=== PATIENT | female | born 1960 | race Caucasian/White ===

== ENCOUNTER 2020-05-14 16:06 | Outpatient (CLI) | payer OTHER, SELFPAY ==
--- NOTE | ~2020-05-14 | MM_ITS ---
EXAMINATION: MM screening johan BI w too HISTORY: Screening mammogram TECHNIQUE: Craniocaudal and mediolateral oblique 3-D tomosynthesis images were obtained and synthetic 2-D images were generated. CAD analysis was submitted and interpreted. COMPARISON: 04/19/2019, 04/17/2015, 11/26/2012 bilateral digital screening mammogram examinations BREAST PARENCHYMAL COMPOSITION: There are scattered areas of fibroglandular density. FINDINGS: There is no evidence of suspicious mass, calcification, or architectural distortion to sugg est malignancy in either breast. There has been no suspicious interval change. IMPRESSION: 1. No mammographic evidence of malignancy. 2. Recommend routine screening mammography in one year. BI-RADS Category 1: Negative Reviewed, dictated and finalized at location A.
== END 2020-05-14 16:07 | disposition home or self-care (01) ==
LOC: ANHIMG 16:07
PROVIDERS: PCP Emergency Medicine; Visit Provider Emergency Medicine
DX: Z12.31 Encounter for screening mammogram for malignant neoplasm of breast (principal)
CPT/HCPCS: 77063; 77067

== ENCOUNTER 2022-03-25 09:54 | Outpatient (CLI) | payer OTHER, SELFPAY ==
--- NOTE | ~2022-03-25 | MM_ITS ---
EXAMINATION: MM screening johan BI w too HISTORY: Screening mammogram TECHNIQUE: Craniocaudal and mediolateral oblique 3-D tomosynthesis images were obtained and synthetic 2-D images were generated. CAD analysis was submitted and interpreted. COMPARISON: 05/14/2020, 04/19/2019, bilateral screening mammogram examinations BREAST PARENCHYMAL COMPOSITION: There are scattered areas of fibroglandular density. FINDINGS: New 2.9 mm circumscribed opacity is noted at mid to posterior depth in the lower inner righ t breast. Diagnostic right mammogram and right breast ultrasound examination are recommended. Otherwise there is no evidence of suspicious mass, calcification, or architectural distortion to sug gest malignancy in either breast. There has been no other suspicious interval change. IMPRESSION: 1. New 2.9 mm mass at mid to posterior depth in the lower inner right breast 2. Diagnostic right mammogram and right breast ultrasound examination are recommended. BI-RADS Category 0: Incomplete: Needs additional imaging evaluation. Reviewed, dictated and finalized at location A. IMPRESSION: 1. New 2.9 mm mass at mid to posterior depth in the lower inner right breast 2. Diagnostic right mammogram and right breast ultrasound examination are recom mended. BI-RADS Category 0: Incomplete: Needs additional imaging evaluation.
== END 2022-03-25 09:55 | disposition home or self-care (01) ==
PROVIDERS: PCP Emergency Medicine; Visit Provider Emergency Medicine
DX: Z12.31 Encounter for screening mammogram for malignant neoplasm of breast (principal); R92.8 Other abnormal and inconclusive findings on diagnostic imaging of breast
CPT/HCPCS: 77063; 77067

== ENCOUNTER 2022-04-21 11:50 | Outpatient (CLI) | payer OTHER, SELFPAY ==
--- NOTE | ~2022-04-21 | MMUS_ITS ---
EXAMINATION: MM diagnostic johan RT w too, US breast RT limited HISTORY: New 2.9 mm mass at mid to posterior depth in the lower inner right breast reported on 022 screening mammogram TECHNIQUE: Additional 3-D tomosynthesis images of were performed and synthetic 2-D images were genera [place]. CAD analysis was submitted and interpreted. High resolution breast ultrasound was performed. COMPARISON: None FINDINGS: MAMMOGRAPHIC FINDINGS: There is an approximately 2.8 mm circumscribed lobular opacity at mid depth in the lower inner quadra nt of the right breast ULTRASOUND: No soft tissue mass, cyst or suspicious shadowing is detected in the lower inner quadrant of the righ t breast. No sonographic correlate is noted for the 2.8 mm mammographic opacity in the lower inner qu adrant. IMPRESSION: 1. Probable benign finding 2. 6 month right diagnostic mammogram follow-up, with ultrasound if required is recommended BI-RADS category 3, probably benign findings. Reviewed, dictated and finalized at location A. IMPRESSION: 1. Probable benign finding 2. 6 month right diagnostic mammogram follow-up, with ultrasound if required is recommended BI-RADS category 3, probably benign findings.
== END 2022-04-21 11:51 | disposition home or self-care (01) ==
PROVIDERS: PCP Emergency Medicine; Visit Provider Emergency Medicine
DX: N63.10 Unspecified lump in the right breast, unspecified quadrant (principal); R92.8 Other abnormal and inconclusive findings on diagnostic imaging of breast
CPT/HCPCS: 76642; 77061; 77065; G0279

== ENCOUNTER 2022-04-27 02:53 | Day surgery (SDC) | payer OTHER, SELFPAY ==
[2022-04-18 09:09] VITALS: BMI 25.3
[2022-04-27 11:22] VITALS: BP 174/69; PULSE 70; RESP 20; TEMP 37; O2SAT 100; BMI 25.9
[2022-04-27] MEDS: LACTATED RINGERS 1,000 ML 150 ML IV CONT (11:23)
--- NOTE | 2022-04-27 11:50 | WPDANESEPPF ---
Anes - Initial Pre Proc Eval Procedure: Operation Date: 04/27/22 12:30 Proposed Procedures p Screening Colonoscopy - Brent Oscar MD Date/Time: 04/27/22 11:50 Surgeon: Brent Oscar MD Pre Op Diagnosis: neoplasm screening Patient Data Age: 61 Gender: F Height: 1.6 m Weight: 66.4 kg Last Vital Signs Temp 98.6 F 04/27/22 11:22 Pulse 70 04/27/22 11:22 Resp 20 04/27/22 11:22 BP 174/69 H 04/27/22 11:22 Pulse Ox 100 04/27/22 11:22 O2 Del Method Room Air 04/27/22 11:22 Allergies Allergy/AdvReac Type Severity Reaction Status Date / Time mold Allergy Unknown Other Verified 04/27/22 11:10 No Known Allergies Allergy Verified 04/27/22 11:10 Home Medications Medication Instructions Recorded Confirmed Type fluticasone propionate 50 See Rx Instructions .Route .COMPLEX 09/08/19 04/18/22 History mcg/actuation nasal spray,suspension (Flonase Allergy Relief) triamcinolone acetonide 0.1 % See Rx Instructions topical DAILY 03/27/20 04/18/22 Rx topical ointment #80 grams ezetimibe 10 mg tablet (Zetia) 10 mg PO DAILY #90 tabs 12/20/21 04/18/22 Rx losartan 100 See Rx Instructions .Route 12/20/21 04/18/22 Rx mg-hydrochlorothiazide 25 mg tablet .COMPLEX #90 tabs nebivolol 10 mg tablet (Bystolic) 10 mg PO DAILY #90 tabs 12/20/21 04/18/22 Rx nebivolol 5 mg tablet (Bystolic) 5 mg PO DAILY #90 tabs 04/05/22 04/18/22 Rx calcium carbonate 600 mg-vitamin 1 tablet PO DAILY 04/19/22 04/27/22 History D3 10 mcg (400 unit) chewable tablet (Calcium 600 with Vitamin D3) Patient hx anesthesia problems: none Family hx anesthesia problems: none Results Review: All pre-operative results and documents have been reviewed as part of the pre-operative evaluation. [facility] Past Medical History Medical History History of vaginal delivery HLD (hyperlipidemia) HTN (hypertension) Other screening mammogram Vitamin D deficiency disease Surgical History Surgical History Hx of tonsillectomy Family History Family History Father Acute myocardial infarction, Onset Age: 58 Family history of hypercholesterolemia Hypertension Mother Family history of hypercholesterolemia Hypertension Grandparent Hypertension Social History Social History Smoking status: Never smoker Second hand tobacco smoke exposure: No Alcohol intake: current Alcohol use details: rare use-on holidays Substance use: never Substance use type: does not use Living arrangements: with family Spiritual care concerns: No Anes - Eval Final PreProcedure Day of Procedure 04/27/22 11:50 Patient weight: normal Heart: regular rate and rhythm Lungs: clear to auscultation Airway: Mallampati scale class II Neurological: alert and oriented Last oral intake: >/= 8 hours ASA classification: II Emergent: no Anesthetic plan: proceed Anesthesia type and monitoring: general GIVS and standard monitoring Results Review: All pre-operative results and documents have been reviewed as part of the pre-operative evaluation. Informed Consent: The patient's anesthetic plan and its attendant risks and benefits were discussed with the patient/family/POA. Questions were solicited and answers provided to the satisfaction of the patient/family/POA.
--- NOTE | 2022-04-27 12:30 | PM.HPGS ---
History of Present Illness History of Present Illness Consent: Risks, benefits, and alternatives have been discussed and questions answered. Patient agrees to proceed with procedure. Chief complaint: neoplasm screening Narrative: Charity Schroeder is a 61 year old female here for first screening colonoscopy Review of Systems Constitutional: Constitutional: Denies headache(s) and Denies weakness Eyes: Eyes: Denies blurry vision ENT: Reports Normal hearing present, Denies headache(s) and Denies neck pain Cardiovascular: Cardiovascular: Denies chest pain and Denies dyspnea Respiratory: Respiratory: Denies dyspnea Gastrointestinal: Gastrointestinal: Reports no additional gastrointestinal complaints Genitourinary: Genitourinary: Denies dysuria Musculoskeletal: Musculoskeletal: Denies neck pain Integumentary/Breasts: Skin/Breast: Denies dry skin Neurologic: Reports Normal hearing present, Denies headache(s) and Denies weakness Psychiatric: Psychiatric: Denies anxiety Endocrine: Endocrine: Denies change in body appearance Hematologic/Lymphatic: Hematologic/Lymphatic: Denies easy bleeding Allergic/Immunologic: Allergic/Immunologic: Denies urticaria PMFSH Past Medical History Medical History History of vaginal delivery HLD (hyperlipidemia) HTN (hypertension) Other screening mammogram Vitamin D deficiency disease Surgical History Surgical History Hx of tonsillectomy Family History Family History Father Acute myocardial infarction, Onset Age: 58 Family history of hypercholesterolemia Hypertension Mother Family history of hypercholesterolemia Hypertension Grandparent Hypertension Social History Social History Smoking status: Never smoker Second hand tobacco smoke exposure: No Alcohol intake: current Alcohol use details: rare use-on holidays Substance use: never Substance use type: does not use Living arrangements: with family Spiritual care concerns: No Meds Home Medications and Allergies Home Medications Medication Instructions Recorded Confirmed Type fluticasone propionate 50 See Rx Instructions .Route .COMPLEX 09/08/19 04/18/22 History mcg/actuation nasal spray,suspension (Flonase Allergy Relief) triamcinolone acetonide 0.1 % See Rx Instructions topical DAILY 03/27/20 04/18/22 Rx topical ointment #80 grams ezetimibe 10 mg tablet (Zetia) 10 mg PO DAILY #90 tabs 12/20/21 04/18/22 Rx losartan 100 See Rx Instructions .Route 12/20/21 04/18/22 Rx mg-hydrochlorothiazide 25 mg tablet .COMPLEX #90 tabs nebivolol 10 mg tablet (Bystolic) 10 mg PO DAILY #90 tabs 12/20/21 04/18/22 Rx nebivolol 5 mg tablet (Bystolic) 5 mg PO DAILY #90 tabs 04/05/22 04/18/22 Rx calcium carbonate 600 mg-vitamin 1 tablet PO DAILY 04/19/22 04/27/22 History D3 10 mcg (400 unit) chewable tablet (Calcium 600 with Vitamin D3) Allergies Allergy/AdvReac Type Severity Reaction Status Date / Time mold Allergy Unknown Other Verified 04/27/22 11:10 No Known Allergies Allergy Verified 04/27/22 11:10 Vital Signs Vital Signs - 24 hr 04/27/22 11:22 Temperature 98.6 F Pulse Rate 70 Respiratory Rate 20 Blood Pressure 174/69 H Pulse Oximetry 100 Oxygen Delivery Room Air Exam Const: General: comfortable and no acute distress HENMT: General nose exam: Normal nares present Eyes: General: appearance normal, both eyes and all related structures Neck: Neck: no JVD Resp: Auscultation: clear to auscultation bilaterally Cardio: Rate: regular rate Rhythm: regular rhythm GI: Inspection: non-distended GI Palp: Yes Soft to palpation Skin: General skin exam: normal color Neuro: General: gait normal Speech: normal speech Extrem: General:
[2022-04-27 12:45] VITALS: BP 123/53; PULSE 69; RESP 13; O2SAT 100
[2022-04-27 12:55] VITALS: BP 133/75; PULSE 63; RESP 18; O2SAT 100
[2022-04-27 13:04] VITALS: BP 158/70; PULSE 53; RESP 18; O2SAT 100
== END 2022-04-27 13:10 | disposition home or self-care (01) ==
PROVIDERS: PCP Emergency Medicine; Visit Provider Internal Medicine Gastroenterology
PROC: 0DJD8ZZ Inspection of Lower Intestinal Tract, Via Natural or Artificial Opening Endoscopic (ICD-10-PCS; CPT 45378; principal; 2022-04-27 12:30)
DX: Z12.11 Encounter for screening for malignant neoplasm of colon (principal); K64.8 Other hemorrhoids; I10 Essential (primary) hypertension; E78.5 Hyperlipidemia, unspecified; E55.9 Vitamin D deficiency, unspecified
CPT/HCPCS: 45378; J2001; J2704; J7120

== ENCOUNTER 2022-11-14 11:47 | Outpatient (CLI) | payer OTHER, SELFPAY ==
--- NOTE | ~2022-11-14 | MM_ITS ---
EXAMINATION: MM diagnostic johan RT w too HISTORY: Six-month follow-up for probably benign right breast mass. TECHNIQUE: Craniocaudal, mediolateral, and mediolateral oblique 3-D tomosynthesis images of the right breast were performed and synthetic 2-D images were generated. CAD analysis was submitted and interp reted. COMPARISON: 04/21/2022, 03/25/2022, 05/14/2020 BREAST PARENCHYMAL COMPOSITION: There are scattered areas of fibroglandular density. FINDINGS: The subtle 3 mm mass of the lower inner right breast demonstrates a similar appearance to p rior mammograms with spot compression. There has been no suspicious interval change. IMPRESSION: 1. No mammographic evidence of malignancy. 2. Routine screening mammography is recommended, due in six months. BI-RADS Category 2: Benign finding(s). Reviewed, dictated and finalized at location A. VITIES AIDE
== END 2022-11-14 11:48 | disposition home or self-care (01) ==
LOC: ANHIMG 11:59
PROVIDERS: PCP Emergency Medicine; Visit Provider Emergency Medicine
DX: N63.10 Unspecified lump in the right breast, unspecified quadrant (principal)
CPT/HCPCS: 77061; 77065; G0279

== ENCOUNTER 2022-12-19 12:56 | Outpatient (CLI) | payer OTHER, SELFPAY ==
--- NOTE | ~2022-12-19 | DEXA_ITS ---
Bone Density Report Name: ROSA GARCIA Age: 62 Sex: Female Ethnicity: White Date of : 1960 Indication: postmenopausal; screening for osteoporosis; Referring Provider: ESHA KUNZ Study: Bone densitometry was performed. Exam Date: December 19, 2022 Accession number: [id number] Bone Density: Region BMD T-score Z-score Classification AP Spine(L1-L4) 1.023 -0.2 1.2 Normal Femoral Neck (Left) 0.658 -1.7 -0.4 Osteopenia Total Hip (Left) 0.883 -0.5 0.5 Normal Femoral Neck (Right) 0.681 -1.5 -0.2 Osteopenia Total Hip (Right) 0.827 -0.9 0.0 Normal Total Hip Mean 0.855 -0.7 0.3 Normal World Health Organization criteria for BMD impression classify patients as: Normal (T-score at or above -1.0), Osteopenia (T-score between -1.0 and -2.5), or Osteoporosis (T-score at or below -2.5). 10-year Fracture Risk(1): Major Osteoporotic Fracture 8.8% Hip Fracture 0.9% Reported Risk Factors: [place] (), Neck BMD=0.658, BMI=26.4 (1) FRAX(R) Version 3.08. Fracture probability calculated for an untreated patient. Fracture probability may be lower if the patient has received treatment. Clinical Information Provided by Patient: Has used the following medications: Vitamin D, Calcium Patient maximum height was 63 Menopause Age: 52 Onset of menses at age 15 Number of children 2 Impression: The patient has low bone mass, based on the Left Femoral Neck T-score. The patient has an estimated ten-year risk of hip fracture of 0.9% and an estimated ten-year risk of major fracture of 8.8%, based on the WHO FRAX algorithm. Discussion: BONE DENSITY IS LOW AT ONE OR MORE SKELETAL SITES. This patient's lowest T-score is low at one or more skeletal sites. It meets the World Health Organization's (WHO) criteria for ?low bone mass? (T-score between -1.0 and -2.5). The patient's 10-year risk of fracture as calculated by FRAX is less than the threshold where pharmacological therapy is recommended by the National Osteoporosis Foundation (NOF). However, all treatment decisions require clinical judgment and consideration of individual patient factors, including patient preferences, comorbidities, previous drug use, risk factors not captured in the FRAX model (e.g., frailty, falls, vitamin D deficiency, increased bone turnover, interval significant decline in bone density) and possible under or overestimation of fracture risk by FRAX. The patient should follow a healthful lifestyle (good nutrition with adequate calcium and vitamin D, and appropriate weight-bearing exercise). Follow-Up: Consider repeating this study in 2 to 3 years to reassess this patient's status, or sooner if there is some new clinical indication. Reported by: BEST on 12/19/2022 1:16:00 PM.
== END 2022-12-19 12:57 | disposition home or self-care (01) ==
PROVIDERS: PCP Emergency Medicine; Visit Provider Student in an Organized Health Care Education/Training Program
DX: Z78.0 Asymptomatic menopausal state (principal); M85.89 Other specified disorders of bone density and structure, multiple sites
CPT/HCPCS: 77080

== ENCOUNTER 2023-07-14 09:07 | Outpatient (CLI) | payer OTHER, SELFPAY ==
--- NOTE | ~2023-07-14 | MM_ITS ---
EXAMINATION: MM screening johan BI w too HISTORY: Screening mammogram TECHNIQUE: Craniocaudal and mediolateral oblique 3-D tomosynthesis images were obtained and synthetic 2-D images were generated. CAD analysis was submitted and interpreted. COMPARISON: 11/14/2022 diagnostic right mammogram 04/21/2022 diagnostic right mammogram and limited right breast ultrasound 05/14/2020, 04/18/2019 bilateral screening mammogram examinations BREAST PARENCHYMAL COMPOSITION: There are scattered areas of fibroglandular density. FINDINGS: There is no evidence of suspicious mass, calcification, or architectural distortion to sugg est malignancy in either breast. There has been no suspicious interval change. IMPRESSION: 1. No mammographic evidence of malignancy. 2. Recommend routine screening mammography in one year. BI-RADS Category 1: Negative Reviewed, dictated and finalized at location A.
== END 2023-07-14 09:08 | disposition home or self-care (01) ==
LOC: ANHIMG 09:09
PROVIDERS: PCP Emergency Medicine; Visit Provider Emergency Medicine
DX: Z12.31 Encounter for screening mammogram for malignant neoplasm of breast (principal)
CPT/HCPCS: 77063; 77067

== ENCOUNTER 2024-08-05 14:44 | Outpatient (CLI) | payer OTHER, SELFPAY ==
--- NOTE | ~2024-08-05 | MM_ITS ---
EXAMINATION: MM screening johan BI w too HISTORY: Screening TECHNIQUE: Craniocaudal and mediolateral oblique 3-D tomosynthesis images were obtained and synthetic 2-D images were generated. CAD analysis was submitted and interpreted. COMPARISON: Comparison to multiple prior studies sequentially, with oldest reviewed study dated 04/19. BREAST PARENCHYMAL COMPOSITION: Not Dense: The breasts are almost entirely fatty. FINDINGS: There is no evidence of suspicious mass, calcification, or architectural distortion to sugg est malignancy in either breast. There has been no suspicious interval change. IMPRESSION: 1. No mammographic evidence of malignancy. 2. Recommend routine screening mammography in one year. BI-RADS Category 1: Negative Reviewed, dictated and finalized at location B.
== END 2024-08-05 14:45 | disposition home or self-care (01) ==
LOC: ANHIMG 14:47
PROVIDERS: PCP Emergency Medicine; Visit Provider Emergency Medicine
DX: Z12.31 Encounter for screening mammogram for malignant neoplasm of breast (principal)
CPT/HCPCS: 77063; 77067

== ENCOUNTER 2025-01-18 08:00 | Emergency (ER) | payer OTHER, SELFPAY ==
--- NOTE | 2025-01-18 08:08 | ED.URI ---
HPI - URI/Sore Throat General Chief Complaint: Upper Respiratory Infection Stated Complaint: cough Time Seen by Provider: 01/18/25 08:08 Source: patient Mode of arrival: ambulatory Limitations: no limitations History of Present Illness HPI Narrative: Charity is a 64-year-old female patient presenting to the clinic today with complaints of a productive cough with yellow phlegm, congestion, sinus pressure, headache, and occasional dizziness with position change. She reports symptoms have been going on for 1 week. Blood pressure was initially 203/86 in the clinic today. She denies any chest pain or shortness of breath. Manual blood pressure was 178/98. States she did take her blood pressure medications this morning Related Data Home Medications ?Medication ?Instructions ?Recorded ?Confirmed ?Last Taken ?Type cholecalciferol (vitamin D3) 50 4,000 unit PO DAILY 01/08/24 Unknown History mcg (2,000 unit) capsule Allergies Allergy/AdvReac Type Severity Reaction Status Date / Time mold Allergy Mild Other Verified 01/18/25 08:10 Review of Systems Review of Systems: Pertinent positives per HPI. Patient denies any fever, chills, rash, visual changes, shortness of breath, chest pain, palpitations, nausea, vomiting, diarrhea, constipation, abdominal pain, or any urinary issues. [facility] Past Medical History Medical History Rotator cuff (capsule) sprain Sleep apnea, unspecified Respiratory tract congestion with cough Acute non-recurrent maxillary sinusitis History of vaginal delivery Other screening mammogram Vitamin D deficiency disease HLD (hyperlipidemia) HTN (hypertension) Surgical History Surgical History Hx of tonsillectomy Family History Family History Father Acute myocardial infarction, Onset Age: 58 Family history of hypercholesterolemia Hypertension Mother Family history of hypercholesterolemia Hypertension Grandparent Hypertension Social History Social History Smoking status: Never smoker Second hand tobacco smoke exposure: No Alcohol intake: current Alcohol use details: rare use-on holidays Substance use: never Substance use type: does not use Living arrangements: with family Spiritual care concerns: No Comments At the time of my signature, I reviewed and agree with the nursing past medical, surgical, social, and family history. There is no relevant family history pertinent to the patient complaint. Exam Narrative: General: Well-developed, well nourished, in no apparent distress Head: Normocephalic, atraumatic Eyes: Pupils equally round and reactive to light bilaterally, EOM intact, sclera and conjunctive clear, no discharge, lids normal Ears: TMs intact and clear, ear canals clear, no drainage, grossly hearing normal. Nose: Nares patent, yellow nasal discharge, moderate inflammation, maxillary sinus tenderness. Mouth: Oral pharynx without lesions or masses, good dentition, MMM. Postnasal drip Neck: Supple, trachea midline, no enlargement of anterior or posterior cervical nodes, no thyroid masses or goiter palpable. Cardio: Regular rate and rhythm, s1 and s2 normal, no murmur appreciated. Resp: Clear to auscultation bilaterally, no rhonchi, rales, wheezing or rubs Course Course Emergency Course: Portions of this record may have been created with voice recognition software. Level of Care: Express Care Visit Vital Signs Vital signs: Vital Signs Temperature 36.6 C 01/18/25 08:16 Pulse Rate 71 01/18/25 08:16 Respiratory Rate 18 01/18/25 08:16 Pulse Oximetry 97 01/18/25 08:16 Oxygen Delivery Room Air 01/18/25 08:16 Temperature 36.6 C 01/18/25 08:16 Pulse Rate 71 01/18/25 08:16 Respiratory Rate 18 01/18/25 08:16 Blood Pressure 178/98 H 01/18/25 08:22 Pulse Oximetry 97 01/18/25 08:16 Oxygen Delivery Room Air 01/18/25 08:16 Vital signs reviewed Transfer Transfered to: [facility] Transportation: Other (private car) Transfer rationale: Hypertension urgency/protein urea Accepting physician: Dr. Glez Transfer comments: private car MDM - URI/Sore Throat MDM Narrative Medical decision making narrative: At the time of visit patient is resting comfortably on the exam table. Patient appears to be nontoxic. Plan: Patient coming in for possible sinus infection. Blood pressure was initially 203/86. She reports some occasional dizziness and sinus headache but no chest pain, shortness of breath, or visual changes. Urinalysis was performed and showed 2+ protein in her urine with a trace of blood. Recommend transfer to the ER for hypertension urgency. Will go ahead and send prescriptions in for sinus infection which will include Tessalon Perles and Augmentin. Patient agrees to be transfer to the ER and would like to go to [facility]. Spoke with Dr. Glez at [facility] and report was given for continuity of care- he accepts patient for transfer. Explained to the patient that due to her high blood pressure and protein in her urine that she could have end-organ damage-damage to her kidneys, liver, heart, and eyes. Risk of high blood pressure include stroke or heart attack. Patient voiced understanding. Differential Diagnosis Differential diagnosis: Likely upper respiratory infection, otitis media, sinusitis, viral infection, bronchitis, influenza, pharyngitis and other (COVID, hypertension urgency, hypertension emergency) Lab Data Labs: Lab Results 01/18/25 Range/Units 08:32 POC Urine Color Yellow POC Urine Clarity Clear POC Urine pH 7.0 POC Ur Specif [place] 1.020 POC Urine Protein 2+ (Negative) POC Ur Glucose (UA) Negative (Negative) POC Urine Ketones Negative (Negative) POC Urine Blood Trace (Negative) POC Urine Nitrite Negative (Negative) POC Urine Bilirubin Negative (Negative) POC Urine Urobilinogen 0.2 POC U Leukocyte Esteras Negative (Negative) Discharge Plan Discharge Clinical Impression: Acute bacterial sinusitis, Hypertensive urgency Patient Disposition: Acute Care Hospital Condition: Stable Patient Language: Kazakh Prescriptions: New benzonatate 200 mg capsule 200 mg PO TID 7 Days Qty: 21 0RF amoxicillin-pot clavulanate 875-125 mg tablet 1 tablet PO Q12H 10 Days Qty: 20 0RF No Action ezetimibe [Zetia] 10 mg tablet 10 mg PO DAILY Qty: 90 3RF triamcinolone acetonide 0.1 % ointment See Rx Instructions TOPICAL DAILY Qty: 80 5RF Rx Instructions: apply by topical route 2 times everyday a thin layer to the affected area topical daily; cholecalciferol (vitamin D3) 50 mcg (2,000 unit) capsule 4,000 unit PO DAILY fluticasone propionate [Flonase Allergy Relief] 50 mcg/actuation spray,suspension See Rx Instructions .ROUTE .COMPLEX Qty: 48 0RF Rx Instructions: [place] 1 spray bt intranasal route everyday in each nostril ; losartan-hydrochlorothiazide 100-25 mg tablet See Rx Instructions .ROUTE .COMPLEX Qty: 90 3RF Dose Instruction: TAKE 1 TABLET DAILY Rx Instructions: TAKE 1 TABLET DAILY nebivolol [Bystolic] 10 mg tablet 10 mg PO DAILY Qty: 90 3RF nebivolol [Bystolic] 5 mg tablet 5 mg PO DAILY Qty: 90 3RF Follow-up/Referrals: Johan Molina MD [Primary Care Provider] - Time of Disposition: 08:43 Quality NIHSS Nursing Documentation ED NIHSS nursing documentation: reviewed/agree
--- OUTSIDE RECORDS SUMMARY | 2025-01-18 08:10 | XMS_ITS | Clinical Summary ---
Author Organization [facility] Address [address] [place] [address] Care Team Providers Care Candy Starch Mold Printer Name Role Phone Unavailable Primary Care Provider Unavailabl e Source Comments [facility],non-owned Affiliates and Associated Physician Practices is amultiple site organization consisting of ambulatory clinics and hospital sitesin [place], [place], [place] and [place]. This disclosure is being madepursuant to the Care Everywhere program and may not contain all information available regarding this patient. Last updated 18.[facility] Allergies No known active allergies Medications * Be aware that medications may not be up to date on this document. Alwaysverify current medications with the patient. Medication Sig Dispensed Refills Start Date End Date Status LOSARTAN POTASSIUM PO Active Nebivolol HCl (BYSTOLIC PO) Active benzonatate (TESSALON) 200 MG capsule Take 1 capsule by mouth 3 times daily as needed for Cough 30 capsule 12/23/2018 Active Family History Medical History Relation Name Comments CAD (Coronary Artery Disease) Father CAD (Coronary Artery Disease) Mother Relation Name Status Comments Father Mother Social History Tobacco Use Types Packs/Day Years Used Date Smoking Tobacco: Never Smokeless Tobacco: Never Sex and Gender Information Value Date Recorded Sex Assigned at Not on file Gender Identity Not on file Sexual Orientation Not on file Last Filed Vital Signs Vital Sign Reading Time Taken Comments Blood Pressure 158/100 12/23/2018 11:05 AM COMPUTER TERMINAL OPERATOR Pulse 70 12/23/2018 10:48 AM COMPUTER TERMINAL OPERATOR Temperature 37.2 C (98.9 F) 12/23/2018 10:48 AM COMPUTER TERMINAL OPERATOR Respiratory Rate 16 12/23/2018 10:48 AM COMPUTER TERMINAL OPERATOR Oxygen Saturation 98% 12/23/2018 10:48 AM COMPUTER TERMINAL OPERATOR Inhaled Oxygen Concentration - - Weight 61.2 kg (135 lb) 12/23/2018 10:48 AM COMPUTER TERMINAL OPERATOR Height 160 cm (5' 3 ) 12/23/2018 10:48 AM COMPUTER TERMINAL OPERATOR Body Mass Index 23.91 12/23/2018 10:48 AM COMPUTER TERMINAL OPERATOR Plan of Treatment Health Maintenance Due Date Last Done Comments COLOGUARD (AGES 45-75) - COL ON CA SCREENING 1962 COLON MONITORING 1962 COLONOSCOPY - COLON CA SCREENING 1962 CT COLONOGRAPHY - COLON CA SCREENING 1962 Colorectal Cancer Screening 1962 FIT - COLON CA SCREENING 1962 FLEX SIG - COLON CA SCREENING 1962 LIPID TESTING 1962 MAMMOGRAM 1962 PAP SMEAR 1962 HIV SCREENING 1977 HEPATITIS C SCREENING 06/23/1980 DTAP/TDAP/TD VACCINES (1 - Tdap) 1981 PNEUMOCOCCAL VACCINE 50+ (1 of 1 - PCV) 2012 ZOSTER VACCINE (1 of 2) 2012 COVID-19 VACCINE (1 - 2023-2 5 season) 2024 INFLUENZA VACCINE (#1) 2024 DEPRESSION SCREENING 10/30/2024 Respiratory Syncytial Virus (RSV) Vaccine Pt: or over 60 yrs (1 - 1-dose 75+ series) 2037 HEPATITIS B VACCINE Aged Out No longe r eligible based on patient's age to complete this topic HIB VACCINE Aged Out No longer eligi ble based on patient's age to complete this topic HPV VACCINE Aged Out No longer eligi ble based on patient's age to complete this topic MENINGOCOCCAL (Group B) VACC INE SHARED DECISION-MAKING Aged Out No longer eligibl e based on patient's age to complete this topic MENINGOCOCCAL GROUPS A/C/Y/W VACCINE Aged Out No longer eligible b ased on patient's age to complete this topic PNEUMOCOCCAL VACCINE Aged Out No long er eligible based on patient's age to complete this topic
--- OUTSIDE RECORDS SUMMARY | 2025-01-18 08:10 | XMS_ITS | Clinical Summary ---
Author Organization [facility] Address [address] [place] [address] Care Team Providers Care Meter Repair Shop Supervisor Name Role Phone Unavailable Primary Care Provider Unavailabl e Social History Tobacco Use Types Packs/Day Years Used Date Smoking Tobacco: Never Assessed Comments Unknown Sex and Gender Information Value Date Recorded Sex Assigned at Not on file Legal Sex Female 4:48 PM CDT Gender Identity Not on file Sexual Orientation Not on file Plan of Treatment Health Maintenance Due Date Last Done Comments Cervical Cancer Screening Pa p Smear (Age 30 to 64) Every 3 Years 1962 Colorectal Cancer Screening Colonoscopy (10 Years) 1962 Annual Physical 1965 Hepatitis C 1980 DTaP, Tdap and Td Vaccines ( 1 - Tdap) 1981 Cervical Cancer Screening Pa p with HPV Testing (Age 30 to 64) Every 5 Years 1992 Cervical Cancer Screening with HPV 1992 Mammogram Screening 2002 Zoster Vaccines (1 of 2) 2012 COVID-19 Vaccine (2023-2 5 season) 2024 Influenza Adult (#1) 2024 RSV Immunization or 60+ Years (1 - 1-dose 75+ series) 2037 Meningococcal B Vaccine Aged Out No l onger eligible based on patient's age to complete this topic Meningococcal Vaccine Aged Out No cierra jose eligible based on patient's age to complete this topic Pneumococcal Vaccine: Pediat rics (0 to 5 Years) and At-Risk Patients (6 to 64 Years) Aged Out No longer eligible b ased on patient's age to complete this topic RSV Immunizations Under 20 Months Aged Out No longer eligible based on patient's age to complete this topic
[2025-01-18 08:16] VITALS: PULSE 71; RESP 18; TEMP 36.6; O2SAT 97
[2025-01-18 08:20] VITALS: BP 218/86
[2025-01-18 08:21] VITALS: BP 223/102
[2025-01-18 08:22] VITALS: BP 178/98
[2025-01-18 08:37] LABS: EDUAAPPEAR Clear; EDUABILI Negative (Negative); EDUABLOOD Trace (Negative); EDUACOLOR1 Yellow; EDUAGLUCOSE Negative (Negative); EDUAKETONE Negative (Negative); EDUALEUKO Negative (Negative); EDUANITRATE Negative (Negative); EDUAPROTEIN 2+ (Negative); EDUAUROBILI 0.2
== END 2025-01-18 08:47 | disposition short-term general hospital (02) ==
PROVIDERS: Emergency Provider Nurse Practitioner Family; PCP Emergency Medicine
DX: J01.90 Acute sinusitis, unspecified (principal); B96.89 Other specified bacterial agents as the cause of diseases classified elsewhere; I16.0 Hypertensive urgency; E78.5 Hyperlipidemia, unspecified; I10 Essential (primary) hypertension
CPT/HCPCS: 81003; 99212; G0463

== ENCOUNTER 2025-01-19 16:22 | Emergency (ER) | payer OTHER, SELFPAY ==
--- NOTE | 2025-01-19 16:25 | ECG_ITS ---
Test Date: 2025-01-19 16:32:04 Measurements Intervals [place] Rate: 86 P: 60 [place]: 179 QRS: 5 QRSD: 86 T: 49 QT: 359 QTc: 431 Interpretive Statements SINUS RHYTHM No previous ECG available for comparison Electronically Signed On 01-20-2025 16:35:25 CDT by Juan Morelos M.D.
--- OUTSIDE RECORDS SUMMARY | 2025-01-19 16:25 | XMS_ITS | Clinical Summary ---
Author Organization [facility] Address [address] [place] [address] Care Team Providers Care Certified Surgical Tech/First Assistant Name Role Phone Unavailable Primary Care Provider [...]
--- OUTSIDE RECORDS SUMMARY | 2025-01-19 16:25 | XMS_ITS | Clinical Summary ---
Author Organization [facility] Address [address] [place] [address] Care Team Providers Care Forging Die Sinker Name Role Phone Unavailable Primary Care Provider Unavailabl e Source Comments [facility],non-owned Affiliates and Associated Physician Practices is amultiple site organization consisting of ambulatory clinics and hospital sitesin [place], [place], [place] and [place]. This disclosure is being madepursuant to the Care Everywhere program and may not contain all information available regarding this patient. Last updated 18.[facility] Allergies No known active allergies Medications * [...] Comments Blood Pressure 158/100 12/23/2018 11:05 AM VISCOSE DEPARTMENT WORKER Pulse 70 12/23/2018 10:48 AM VISCOSE DEPARTMENT WORKER Temperature 37.2 C (98.9 F) 12/23/2018 10:48 AM VISCOSE DEPARTMENT WORKER Respiratory Rate 16 12/23/2018 10:48 AM VISCOSE DEPARTMENT WORKER Oxygen Saturation 98% 12/23/2018 10:48 AM VISCOSE DEPARTMENT WORKER Inhaled Oxygen Concentration - - Weight 61.2 kg (135 lb) 12/23/2018 10:48 AM VISCOSE DEPARTMENT WORKER Height 160 cm (5' 3 ) 12/23/2018 10:48 AM VISCOSE DEPARTMENT WORKER Body Mass Index 23.91 12/23/2018 10:48 AM VISCOSE DEPARTMENT WORKER Plan of Treatment Health Maintenance Due Date [...]
[2025-01-19 16:33] VITALS: BP 230/110; PULSE 96; RESP 16; TEMP 36.7; O2SAT 96
[2025-01-19 16:35] VITALS: BP 227/112
--- NOTE | 2025-01-19 19:03 | ED.RECABL ---
HPI - Recheck/Abnormal Lab/Rx General Chief Complaint: Recheck/Abnormal Lab/Rx Stated Complaint: HTN Time Seen by Provider: 01/19/25 19:01 Source: patient and family Mode of arrival: ambulatory Limitations: no limitations History of Present Illness HPI narrative: Patient presents with report of hypertension. She was seen at urgent care yesterday for sinus infection symptoms and prescribed an antibiotic. Prior to their assessment and plan however she was noted to be hypertensive and encouraged to go to the emergency department. She declined as she was dealing with symptoms of her cold/upper respiratory infection and continue to monitor at home with a home BP cuff. It did remain elevated at home. Patient has a diagnosis of hypertension and is on Bystolic 10 q.a.m. as well as losartan-hydrochlorothiazide 100-25 QAM. She took her antihypertensives yesterday morning as well as this morning. No dose changes to these medications recently although it has been a year since she saw her primary care physician Dr. Molina. She has an appointment to see him tomorrow for her annual appointment. Patient denies any altered mental status/confusion, no chest pain or changes in urine output. She did have a cough related to sinus drainage that at times made her feel like she was choking and therefore short of breath but she states this is better now. She also states that she has/has a mild headache but it seemed frontal and related to her sinus congestion. Related Data Home Medications ?Medication ?Instructions ?Recorded ?Confirmed ?Last Taken ?Type cholecalciferol (vitamin D3) 50 4,000 unit PO DAILY 01/08/24 Unknown History mcg (2,000 unit) capsule Allergies Allergy/AdvReac Type Severity Reaction Status Date / Time mold Allergy Mild Other Verified 01/19/25 16:23 [facility] Past Medical History Medical History Rotator cuff (capsule) sprain Sleep apnea, unspecified Respiratory tract congestion with cough Acute non-recurrent maxillary sinusitis History of vaginal delivery Other screening mammogram Vitamin D deficiency disease HLD (hyperlipidemia) HTN (hypertension) Surgical History Surgical History Hx of tonsillectomy Family History Family History Father Acute myocardial infarction, Onset Age: 58 Family history of hypercholesterolemia Hypertension Mother Family history of hypercholesterolemia Hypertension Grandparent Hypertension Social History Social History Smoking status: Never smoker Second hand tobacco smoke exposure: No Alcohol intake: current Alcohol use details: rare use-on holidays Substance use: never Substance use type: does not use Living arrangements: with family Spiritual care concerns: No Exam Narrative: GENERAL: Well-appearing, well-nourished, and in no acute distress. HEAD: Normocephalic, atraumatic. EYES: Non injected, non icteric ENT: Nares clear, no rhinorrhea or epistaxis. NECK: Supple. CHEST: Speaking in full sentences. No respiratory distress. HEART: Regular rate and rhythm. . ABDOMEN: Soft, nondistended. EXTREMITIES: Normal range of motion. No lower extremity edema. SKIN: Warm, dry, no rash. NEURO: No focal deficits. Alert and oriented x3. PSYCH: Normal mood and affect. Course Vital Signs Vital signs: Vital Signs Temperature 98.1 F 01/19/25 16:33 Pulse Rate 96 01/19/25 16:33 Respiratory Rate 16 01/19/25 16:33 Blood Pressure 230/110 H 01/19/25 16:33 Pulse Oximetry 96 01/19/25 16:33 Oxygen Delivery Room Air 01/19/25 16:33 Temperature 98.1 F 01/19/25 16:33 Pulse Rate 91 01/19/25 21:13 Respiratory Rate 16 01/19/25 21:13 Blood Pressure 196/87 H 01/19/25 21:13 Pulse Oximetry 98 01/19/25 21:13 Oxygen Delivery Room Air 01/19/25 16:33 MDM - Recheck/Abnormal Lab/Rx MDM Narrative Medical decision making narrative: Patient presents with report of hypertension. She was seen at urgent care yesterday for a sinus infection and upon initial vital signs hypertensive. She has been compliant with her antihypertensives (Bystolic, hydrochlorothiazide-losartan) yesterday as well as today and otherwise feels like she is asymptomatic. She had some mild shortness of breath when she felt she was choking from her sinus drainage and a mild frontal headache attributed to congestion but again, both improved at this time. In the emergency department she is afebrile with vital signs notable for significant hypertension, 230/110 initially into 227/112 on repeat. Patient was checking her blood pressure yesterday and this morning after it was noted that she was hypertensive but otherwise has not checked her blood pressure at home in a very long time. For this reason, we discussed that it is possible that her blood pressure has been elevated for several weeks or months and that dropping it precipitously if she is otherwise asymptomatic can be dangerous but that we would perform screening exam to assess for end-organ damage. Patient's creatinine is 1.05, just slightly abnormal although per review of the EMR she has chronically had a slightly elevated creatinine likely consistent with a degree of early CKD. She has hypokalemia; oral supplementation/repletion ordered as is a magnesium. Trace leukocyte esterase and trace protein but otherwise no signs of infection. She already has an appointment to see her primary care physician that was previously scheduled for tomorrow as her annual visit. Discharged in stable condition and encouraged to keep this appointment. Lab Data Attestation: I reviewed the patient's lab results. Lab results narrative: CBC generally unremarkable 01/19/25 19:16 01/19/25 19:16 Labs: Lab Results 01/19/25 01/19/25 01/19/25 Range/Units 19:14 19:16 20:25 WBC 10.0 (4.5-10.0) K/mm3 RBC 4.39 (4.2-5.4) M/mm3 Hgb 13.2 (12.0-15.0) g/dL Hct 39.0 (37.0-47.0) % MCV 88.8 (80-100) fl MCH 30.1 (26-34) pg MCHC 33.8 (32-36) g/dl RDW 12.1 (11.5-14.5) % Plt Count 253 (150-375) k/mm3 MPV 9.5 (7.4-10.4) fl Immature Gran % (Auto) 0.2 (0-0.5) % Neut % (Auto) 79.9 H (45.5-73.1) % Lymph % (Auto) 15.3 L (18.3-44.2) % [place] % (Auto) 3.6 (2.6-8.5) % Eos % (Auto) 0.7 (0-4.4) % Baso % (Auto) 0.3 (0.2-1.2) % Lymph # (Auto) 1.53 (0.9-3.2) K/mm3 [place] # (Auto) 0.4 (0.1-0.6) K/mm3 Eos # (Auto) 0.1 (0-0.3) K/mm3 Baso # (Auto) 0.0 (0.0-0.1) K/mm3 Abs Immat Gran (auto) 0.02 (0.00-0.031) K/mm3 Absolute Neuts (auto) 8.0 H (1.3-6.7) K/mm3 Absolute Nucleated RBC 0.000 (0.0-0.012) K/mm3 Band Neutrophils % Not Reportable Nucleated RBC % 0.0 (0.0-0.2) % Atypical Lymphocytes Present Platelet Estimate Adequate (Adequate) Schistocytes None seen Sodium 135 L (137-145) mmol/L Potassium 3.1 L (3.4-5.0) mmol/L Chloride 95 L (98-107) mmol/L Carbon Dioxide 27 (22-30) mmol/L Anion Gap 13 H (4-12) mmol/L BUN 16 (7-17) mg/dL Creatinine 1.05 H (0.7-1.0) mg/dL Estim Creat Clear Calc 44 ml/min Estimated GFR 53 L (59 - ) Glucose 119 H (65-110) mg/dL Calcium 10.0 (8.4-10.2) mg/dL Magnesium 1.9 (1.6-2.3) mg/dL Total Bilirubin 0.6 (0.2-1.3) mg/dL AST 34 (14-36) U/L ALT 21 (6-35) U/L Alkaline Phosphatase 93 (38-126) U/L Total Protein 9.0 H (6.3-8.2) g/dL Albumin 5.1 (3.5-5.1) g/dL Urine Color Yellow (Yellow) Urine Appearance Clear (Clear) Urine pH 5.5 (5.0-9.0) Ur Specific [place] 1.011 (1.001-1.035) Urine Protein 1+ H (Negative) mg/dL Urine Glucose (UA) Negative (Negative) mg/dL Urine Ketones Negative (Negative) mg/dL Ur Blood (Man) Trace (Negative) Urine Nitrate Negative (Negative) Urine Bilirubin Negative (Negative) Urine Urobilinogen 0.2 (<2.0) mg/dL Leukocyte Esterase Rfl Trace H (Negative) MARCIAL/UL Urine RBC 0-2 (0-2) /hpf Urine WBC 0-5 (0-3) /hpf Ur Squamous Epith Cells None seen (Few) /hpf Urine Bacteria None seen /hpf Urine Casts 0-2 ECG Data EKG #1: Attestation: I personally reviewed and interpreted this ECG as follows: ECG completion date: 01/19/25 ECG completion time: 16:32 Interpretation: NORMAL SINUS RHYTHM AT A RATE OF 86 BEATS PER MINUTE. ID INTERVAL 179. QRS 86. QT/QTC 359/403. GOOD R-WAVE PROGRESSION ACROSS THE PRECORDIAL LEADS. NO T-WAVE INVERSIONS. Discharge Plan Discharge Clinical Impression: Hypokalemia, CKD (chronic kidney disease) HTN (hypertension) Qualifiers: Hypertension type: essential hypertension Qualified Code(s): I10 - Essential (primary) hypertension Patient Disposition: Home, Self-Care Condition: Stable Instructions: Antibiotic Form, Chronic Kidney Disease (ED), Chronic Kidney Disease Diet (DC), Hypokalemia (ED), Chronic Hypertension (ED) Additional Instructions: Keep your appointment with your primary care physician and had already been scheduled for tomorrow. Continue taking your medications as prescribed. You and your primary care physician can discuss if he would like you to keep a log of your blood pressures for a while or make a more immediate change to your blood pressure medications before that. Return to the emergency department with any new or worsening symptoms. Patient Language: Jordanian Prescriptions: No Action benzonatate 200 mg capsule 200 mg PO TID 7 Days Qty: 21 0RF amoxicillin-pot clavulanate 875-125 mg tablet 1 tablet PO Q12H 10 Days Qty: 20 0RF ezetimibe [Zetia] 10 mg tablet 10 mg PO DAILY Qty: 90 3RF triamcinolone acetonide 0.1 % ointment See Rx Instructions TOPICAL DAILY Qty: 80 5RF Rx Instructions: apply by topical route 2 times everyday a thin layer to the affected area topical daily; cholecalciferol (vitamin D3) 50 mcg (2,000 unit) capsule 4,000 unit PO DAILY fluticasone propionate [Flonase Allergy Relief] 50 mcg/actuation spray,suspension See Rx Instructions .ROUTE .COMPLEX Qty: 48 0RF Rx Instructions: [place] 1 spray bt intranasal route everyday in each nostril ; losartan-hydrochlorothiazide 100-25 mg tablet See Rx Instructions .ROUTE .COMPLEX Qty: 90 3RF Dose Instruction: TAKE 1 TABLET DAILY Rx Instructions: TAKE 1 TABLET DAILY nebivolol [Bystolic] 10 mg tablet 10 mg PO DAILY Qty: 90 3RF nebivolol [Bystolic] 5 mg tablet 5 mg PO DAILY Qty: 90 3RF Follow-up/Referrals: Johan Molina MD [Primary Care Provider] - Stand Alone Forms: Work/School Release IP Time of Disposition: 20:58
[2025-01-19 19:21] LABS: Basophils Percent Auto 0.3 % (0.2-1.2); Eosinophils Absolute Auto 0.1 K/mm3 (0-0.3); Eosinophils Percent Auto 0.7 % (0-4.4); Hemoglobin 13.2 g/dL (12.0-15.0); Immature Granulocyte Absolute 0.02 K/mm3 (0.00-0.031); Immature Granulocyte Percent A 0.2 % (0-0.5); Lymphocytes Absolute Auto 1.53 K/mm3 (0.9-3.2); Lymphocytes Percent Auto 15.3 % (18.3-44.2); Mean Corpuscular HGB Conc 33.8 g/dl (32-36); Mean Corpuscular Hemoglobin 30.1 pg (26-34); Mean Corpuscular Volume 88.8 fl (80-100); Mean Platelet Volume 9.5 fl (7.4-10.4); Monocytes Absolute Auto 0.4 K/mm3 (0.1-0.6); Monocytes Percent Auto 3.6 % (2.6-8.5); Neutrophils Percent Auto 79.9 % (45.5-73.1); Platelet Count Result 253 k/mm3 (150-375); Red Blood Count 4.39 M/mm3 (4.2-5.4); Red Cell Distribution Width 12.1 % (11.5-14.5)
[2025-01-19 19:34] LABS: Alanine Aminotransferase 21 U/L (6-35); Albumin Level 5.1 g/dL (3.5-5.1); Alkaline Phosphatase 93 U/L (38-126); Anion Gap 13 mmol/L (4-12); Aspartate Amino Transferase 34 U/L (14-36); Bilirubin,Total 0.6 mg/dL (0.2-1.3); Blood Urea Nitrogen 16 mg/dL (7-17); Carbon Dioxide 27 mmol/L (22-30); Chloride 95 mmol/L (98-107); Estimated CRCL calculation 44 ml/min; Estimated Glomerular Filt Rate 53; Glucose 119 mg/dL (65-110); Potassium 3.1 mmol/L (3.4-5.0); Sodium 135 mmol/L (137-145)
[2025-01-19 19:36] LABS: Atypical Lymphocytes Present; Platelet Estimate Adequate (Adequate); Schistocytes None Seen
[2025-01-19] MEDS: POTASSIUM BICARBONATE 25 MEQ TABEF 50 MEQ PO (20:01)
[2025-01-19 20:02] VITALS: BP 204/99; PULSE 83; RESP 21; O2SAT 98
--- OUTSIDE RECORDS SUMMARY | 2025-01-19 20:13 | XMS_ITS | Clinical Summary ---
Author Organization [facility] [employer] Address [address] [place] [address] Care Team Providers Care Rn Medication Name Role Phone Unavailable Primary Care Provider Unavailabl e Source Comments [facility],non-owned Affiliates and Associated Physician Practices is amultiple site organization consisting of ambulatory clinics and hospital sitesin [place], [place], [place] and [place]. This disclosure is being madepursuant to the Care Everywhere program and may not contain all information available regarding this patient. Last updated 18.[facility] [employer] Allergies No known active allergies Medications * [...] Comments Blood Pressure 158/100 12/23/2018 11:05 AM BAIL AGENT Pulse 70 12/23/2018 10:48 AM BAIL AGENT Temperature 37.2 C (98.9 F) 12/23/2018 10:48 AM BAIL AGENT Respiratory Rate 16 12/23/2018 10:48 AM BAIL AGENT Oxygen Saturation 98% 12/23/2018 10:48 AM BAIL AGENT Inhaled Oxygen Concentration - - Weight 61.2 kg (135 lb) 12/23/2018 10:48 AM BAIL AGENT Height 160 cm (5' 3 ) 12/23/2018 10:48 AM BAIL AGENT Body Mass Index 23.91 12/23/2018 10:48 AM BAIL AGENT Plan of Treatment Health Maintenance Due Date [...]
--- OUTSIDE RECORDS SUMMARY | 2025-01-19 20:13 | XMS_ITS | Clinical Summary ---
Author Organization [facility] Address [address] [place] [address] Care Team Providers Care Subway Conductor Name Role Phone Unavailable Primary Care Provider [...]
[2025-01-19 20:36] LABS: Add Urine Microscopic? YES; Appearance Urine Clear (Clear); Bacteria Urine None Seen /hpf; Bilirubin Urine Negative (Negative); Blood Urine Trace (Negative); Color Urine Yellow (Yellow); Glucose Urine UA Negative (Negative); Ketones Urine Negative (Negative); Leukocyte Esterase Ur Trace LEU/UL (Negative); Nitrate Urine Negative (Negative); Non Pathogenic Casts 0-2; Protein Urine 1+ mg/dL (Negative); RBC Urine 0-2 /hpf (0-2); Specific Grav Ur 1.011 (1.001-1.035); Squamous Epithelial Cell Urine None Seen /hpf (Few); Urobilinogen Urine 0.2 mg/dL (<2.0); WBC Urine 0-5 /hpf (0-3); pH Urine 5.5 (5.0-9.0)
[2025-01-19 20:55] LABS: Magnesium 1.9 mg/dL (1.6-2.3)
[2025-01-19 21:13] VITALS: BP 196/87; PULSE 91; RESP 16; O2SAT 98
== END 2025-01-19 21:15 | disposition home or self-care (01) ==
PROVIDERS: Emergency Provider Student in an Organized Health Care Education/Training Program; PCP Emergency Medicine
DX: I12.9 Hypertensive chronic kidney disease with stage 1 through stage 4 chronic kidney disease, or unspecified chronic kidney disease (principal); N18.9 Chronic kidney disease, unspecified; E55.9 Vitamin D deficiency, unspecified; E78.5 Hyperlipidemia, unspecified; G47.30 Sleep apnea, unspecified; E87.6 Hypokalemia; Z79.899 Other long term (current) drug therapy
CPT/HCPCS: 36415; 80053; 81001; 83735; 85025; 93005; 99283; A9270

== ENCOUNTER 2025-01-20 11:11 | Outpatient (CLI) | payer OTHER, SELFPAY ==
--- NOTE | ~2025-01-20 | XR_ITS ---
EXAMINATION: XR chest 2V DATE: 01/20/2025 11:27 INDICATION: Cough, wheezing and rattles TECHNIQUE: PA and lateral views of the chest were obtained. COMPARISON: None FINDINGS: The lungs are clear with no focal airspace opacities, pulmonary edema, pleural effusion or pneumothor ax. The cardiomediastinal silhouette is normal. Mild thoracic spondylosis. IMPRESSION: 1. No acute cardiopulmonary disease. Reviewed, dictated and finalized at location B.
--- OUTSIDE RECORDS SUMMARY | 2025-01-20 13:18 | XMS_ITS | Clinical Summary ---
Author Organization [facility] Address [address] [place] [address] Care Team Providers Care Internal Controls Analyst Name Role Phone Unavailable Primary Care Provider Unavailabl e Source Comments [facility],non-owned Affiliates and Associated Physician Practices is amultiple site organization consisting of ambulatory clinics and hospital sitesin [place], [place], [place] and [place]. This disclosure is being madepursuant to the Care Everywhere program and may not contain all information available regarding this patient. Last updated 18.[facility] Allergies No known active allergies Medications * [...] Comments Blood Pressure 158/100 12/23/2018 11:05 AM AS400 DEVELOPER Pulse 70 12/23/2018 10:48 AM AS400 DEVELOPER Temperature 37.2 C (98.9 F) 12/23/2018 10:48 AM AS400 DEVELOPER Respiratory Rate 16 12/23/2018 10:48 AM AS400 DEVELOPER Oxygen Saturation 98% 12/23/2018 10:48 AM AS400 DEVELOPER Inhaled Oxygen Concentration - - Weight 61.2 kg (135 lb) 12/23/2018 10:48 AM AS400 DEVELOPER Height 160 cm (5' 3 ) 12/23/2018 10:48 AM AS400 DEVELOPER Body Mass Index 23.91 12/23/2018 10:48 AM AS400 DEVELOPER Plan of Treatment Health Maintenance Due Date [...]
--- OUTSIDE RECORDS SUMMARY | 2025-01-20 13:18 | XMS_ITS | Clinical Summary ---
Author Organization [facility] Address [address] [place] [address] Care Team Providers Care Bookkeeping Machine Mechanic Name Role Phone Unavailable Primary Care Provider [...]
== END 2025-01-20 11:12 | disposition home or self-care (01) ==
PROVIDERS: PCP Emergency Medicine; Visit Provider Emergency Medicine
DX: R06.2 Wheezing (principal); R06.09 Other forms of dyspnea
CPT/HCPCS: 71046

== ENCOUNTER 2025-03-15 08:07 | Emergency (ER) | payer OTHER, SELFPAY ==
--- NOTE | ~2025-03-15 | XR_ITS ---
EXAMINATION: XR abdomen/kub 1V DATE: 03/15/2025 08:40 INDICATION: No bowel movement for a week. TECHNIQUE: A supine view of the abdomen on 2 radiographs was obtained. COMPARISON: None. FINDINGS: Moderate to large amount of stool seen scattered throughout the colon. No dilated loops of gas-filled small bowel to suggest obstruction. IMPRESSION: 1. Moderate to large amount of colonic stool consistent with provided history of constipation. Reviewed, dictated and finalized at location A. IMPRESSION: 1. Moderate to large amount of colonic stool consistent with provided history o f constipation.
--- OUTSIDE RECORDS SUMMARY | 2025-03-15 08:09 | XMS_ITS | Clinical Summary ---
Author Organization [facility] [employer] Address [address] [place] [address] Care Team Providers Care Automotive Accessory Installer Name Role Phone Unavailable Primary Care Provider Unavailabl e Source Comments [facility],non-owned Affiliates and Associated Physician Practices is amultiple site organization consisting of ambulatory clinics and hospital sitesin [place], [place], [place] and [place]. This disclosure is being madepursuant to the Care Everywhere program and may not contain all information available regarding this patient. Last updated 18.[facility] Allergies No known active allergies Medications * Be aware that medications may not be up to date on this document. Alwaysverify current medications with the patient. LOSARTAN POTASSIUM PO Active Nebivolol HCl (BYSTOLIC [...] Date Smoking Tobacco: Never Smokeless Tobacco: Never Comments No Sex and Gender Information Value Date Recorded Sex Assigned at Not on file Legal Sex Female 9:28 AM MAIL MANAGER Gender Identity Not on file Sexual Orientation Not on file Last Filed Vital Signs Vital Sign Reading Time Taken Comments Blood Pressure 158/100 12/23/2018 11:05 AM MAIL MANAGER Pulse 70 12/23/2018 10:48 AM MAIL MANAGER Temperature 37.2 C (98.9 F) 12/23/2018 10:48 AM MAIL MANAGER Respiratory Rate 16 12/23/2018 10:48 AM MAIL MANAGER Oxygen Saturation 98% 12/23/2018 10:48 AM MAIL MANAGER Inhaled Oxygen Concentration - - Weight 61.2 kg (135 lb) 12/23/2018 10:48 AM MAIL MANAGER Height 160 cm (5' 3 ) 12/23/2018 10:48 AM MAIL MANAGER Body Mass Index 23.91 12/23/2018 10:48 AM MAIL MANAGER Plan of Treatment Health Maintenance Due Date Last Done Comments COLOGUARD (AGES 45-75) - COL ON CA SCREENING 1962 COLON MONITORING 1962 COLONOSCOPY - COLON CA SCREENING 1962 CT COLONOGRAPHY - COLON CA SCREENING 1962 Colorectal Cancer Screening 1962 FIT - COLON CA SCREENING 1962 FLEX SIG - COLON CA SCREENING 1962 LIPID TESTING 1962 MAMMOGRAM 1962 HIV SCREENING 1977 HEPATITIS C SCREENING 06/23/1980 DTAP/TDAP/TD VACCINES (1 - Tdap) 1981 PNEUMOCOCCAL VACCINE 50+ (1 of 1 - PCV) 2012 ZOSTER VACCINE (1 of 2) 2012 COVID-19 VACCINE (1 - 2023-2 5 season) 2024 DEPRESSION SCREENING 10/30/2024 INFLUENZA VACCINE (Season Ended) 2025 Respiratory Syncytial Virus (RSV) Vaccine Pt: or [...] on patient's age to complete this topic Insurance [facility]
--- OUTSIDE RECORDS SUMMARY | 2025-03-15 08:09 | XMS_ITS | Clinical Summary ---
Author Organization [facility] Address [address] [place] [address] Care Team Providers Care Jewish History Professor Name Role Phone Unavailable Primary Care Provider [...] Screening with HPV 1992 Mammogram Screening 2002 Pneumococcal Vaccine: 50+ Ye ars (1 of 1 - PCV) 2012 Zoster Vaccines (1 of 2) 2012 COVID-19 Vaccine (2023-2 5 season) 2024 RSV Immunization or 60+ Years (1 [...]
--- NOTE | 2025-03-15 08:11 | ED_ITS ---
HPI - General Adult General Chief complaint: Abdominal Pain Stated complaint: Constipation Time Seen by Provider: 03/15/25 08:11 Source: patient Mode of arrival: ambulatory Limitations: no limitations History of Present Illness HPI narrative: 64-year-old female patient presents to the [facility] with complaints of no bowel movement x1 week. Patient states she does have chronic constipation issues and usually only has a bowel movement every 3-4 days. Patient states she does eat a lot of fiber and eats a lot of salads and vegetables. Denies taking any probiotics. Denies any fevers body aches or chills. Denies any vomiting or nausea. Patient states that she has tried taking some magnesium citrate as well as Colace for the last 2 days but has not produced any bowel movement. Patient states she does have some cramping and is passing gas at times. Related Data Home Medications Medication Instructions Recorded Confirmed Last Taken Type cholecalciferol (vitamin D3) 50 4,000 unit PO DAILY 01/08/24 03/15/25 Unknown History mcg (2,000 unit) capsule Allergies Allergy/AdvReac Type Severity Reaction Status Date / Time mold Allergy Mild Hives Verified 03/15/25 08:09 Review of Systems Review of Systems: CONSTITUTIONAL: Denies fever, chills, or sweats. EYES: Denies visual changes, redness, or discharge. ENT: Denies rhinorrhea, congestion, sore throat, or otalgia. CARDIOVASCULAR: Denies chest pain, palpitations, or edema. RESPIRATORY: Denies cough or dyspnea. GASTROINTESTINAL: Positive abdominal cramping, denies nausea, vomiting, or diarrhea. no bowel movement x1 week GENITOURINARY: Denies dysuria or hematuria. SKIN: Denies rash or itching. MUSCULOSKELETAL: Denies back pain, joint pain, or myalgia. NEUROLOGIC: Denies headache, numbness, or weakness. PSYCHIATRIC: Denies anxiety or depression. [facility] Past Medical History Medical History Rotator cuff (capsule) sprain Sleep apnea, unspecified Respiratory tract congestion with cough Acute non-recurrent maxillary sinusitis History of vaginal delivery Other screening mammogram Vitamin D deficiency disease HLD (hyperlipidemia) HTN (hypertension) Surgical History Surgical History Hx of tonsillectomy Family History Family History Father Acute myocardial infarction, Onset Age: 58 Family history of hypercholesterolemia Hypertension Mother Family history of hypercholesterolemia Hypertension Grandparent Hypertension Social History Social History Smoking status: Never smoker Second hand tobacco smoke exposure: No Alcohol intake: current Alcohol use details: rare use-on holidays Substance use: never Substance use type: does not use Do You Feel Safe in your Home?: Yes Lack of Transportation: No Lack of Food: Never True Current Housing: I Have Housing Concerned About Future Housing: No Difficulty Paying Gas/Electric Bills: No Difficulty Paying for Meds: No Currently Unemployed: No Education: Trade/Vocational Certificate Difficulty w/ Childcare or Family Care: No Living arrangements: with family Spiritual care concerns: No Comments At the time of my signature I agree with nursing past medical history, surgical, social, and family history. There is no relevant family history pertinent to the presenting complaint. Exam Narrative: GENERAL: Well-appearing, well-nourished, and in no acute distress. HEAD: Normocephalic, atraumatic. EYES: PERRLA and EOMI. ENT: Nares clear, no rhinorrhea or epistaxis. Mucous membranes moist. NECK: Supple. No lymphadenopathy CHEST: Clear to auscultation. No respiratory distress. HEART: Regular rate and rhythm. No murmur heard. Normal peripheral pulses. ABDOMEN: Soft,distended. No guarding, rebound tenderness, or rigid. No pulsatilla masses. hyperactive Bowel sounds present in all four quadrants. No organomegaly. Negative Soliman´s sign. No periumbicial tenderness. slight tenderness noted to the left lower quadrant on palpation. No Supra public tenderness or distension. Good femoral pulses bilaterally. No hernia noted. No scars or surface trauma. EXTREMITIES: Normal range of motion. No edema. SKIN: Warm, dry, no rash. NEURO: No focal deficits. Alert and oriented x3. Course Course Level of Care: Express Care Visit Reevaluation(s) Reevaluation #1: re-evaluated patient after the x-ray notified her that the x-ray does not show any evidence of a bowel obstruction at this time. Discussed with her that we will try some MiraLax and I want her to try the MiraLax every hour until she starts producing results. We will also prescribe her an enema to see if that can start help moving things along. Encouraged patient to drink only water and increase her water intake as well as recommend that she start on some probiotics to help with her digestive issues and follow up with her doctor. Discussed with patient she does not see results in 2 days she needs to call her primary doctor for further assessment. Date: 03/15/25 Time: 09:00 Vital Signs Vital signs: Vital Signs Temperature 36.8 C 03/15/25 08:15 Pulse Rate 80 03/15/25 08:15 Respiratory Rate 18 03/15/25 08:15 Blood Pressure 150/71 H 03/15/25 08:15 Pulse Oximetry 99 03/15/25 08:15 Oxygen Delivery Room Air 03/15/25 08:15 Temperature 36.8 C 03/15/25 08:15 Pulse Rate 80 03/15/25 08:15 Respiratory Rate 18 03/15/25 08:15 Blood Pressure 150/71 H 03/15/25 08:15 Pulse Oximetry 99 03/15/25 08:15 Oxygen Delivery Room Air 03/15/25 08:15 vital signs reviewed. Medical Decision Making MDM Narrative Medical decision making narrative: Plan of care patient is to obtain a KUB x-ray to rule out any possible bowel obstruction. I will reassess patient once this has resulted. Differential Diagnosis Differential Diagnosis: Differential diagnosis: Appendicitis, ovarian torsion, gallbladder disease, ovarian torsion, pancreatitis, lower lobe pneumonia,AAA, AMI or ACS, DKA, diverticulitis. Vital Signs Vital Signs: Vital Signs Temperature 36.8 C 03/15/25 08:15 Pulse Rate 80 03/15/25 08:15 Respiratory Rate 18 03/15/25 08:15 Blood Pressure 150/71 H 03/15/25 08:15 Pulse Oximetry 99 03/15/25 08:15 Oxygen Delivery Room Air 03/15/25 08:15 Temperature 36.8 C 03/15/25 08:15 Pulse Rate 80 03/15/25 08:15 Respiratory Rate 18 03/15/25 08:15 Blood Pressure 150/71 H 03/15/25 08:15 Pulse Oximetry 99 03/15/25 08:15 Oxygen Delivery Room Air 03/15/25 08:15 Imaging Data Radiologist's impression: [facility] [place] [address] [place] [address] XRay Report Signed Patient: Charity Schroeder : 1960 MR#: [id number] Age: 64 Acct:[id number] Loc: [facility] ADM Date: 03/15/25Attending Dr: Ordering Physician: Socorro Arana SALES REPRESENTATIVE CONSULTANT Date of Service: 03/15/25 Procedure(s): XR abdomen/kub 1V Accession Number(s): [id number] cc: Johan Molina MD; Socorro Arana SALES REPRESENTATIVE CONSULTANT~ EXAMINATION: XR abdomen/kub 1V DATE: 03/15/2025 08:40 INDICATION: No bowel movement for a week. TECHNIQUE: A supine view of the abdomen on 2 radiographs was obtained. COMPARISON: None. FINDINGS: Moderate to large amount of stool seen scattered throughout the colon. No dilated loops of gas-filled small bowel to suggest obstruction. IMPRESSION: 1. Moderate to large amount of colonic stool consistent with provided history of constipation. Reviewed, dictated and finalized at location A. Critical Care Time Critical Care Time Critical Care Time: No Discharge Plan Discharge Clinical Impression: Constipation Qualifiers: Constipation type: unspecified constipation type Qualified Code(s): K59.00 - Constipation, unspecified Patient Disposition: Home Condition: Stable Instructions: Antibiotic Form, Constipation (ED) Additional Instructions: Call your doctor or go to the emergency department if: You develop fevers, nausea, vomiting or diarrhea or severe abdominal pain. Follow-up with your doctor in the next 5-7 days or possible GI specialist referral. Take prescribed medication as directed. Increase fluid intake especially water. Eat high fiber foods Exercises regularly Scheduled time each day to have a bowel movement. This may help train your body to have regular bowel movements. Bend forward while you're on the toilet to help move the bowel movement out. Sit on the toilet for at least 10 minutes, even if you don't have to have a bowel movement. Patient Language: Estonian Prescriptions: New polyethylene glycol 3350 [Miralax] 17 gram/dose powder 17 g PO .Q hour Qty: 238 0RF Ssadm-Ht-Hfl Enema 19-7 gram/118 mL enema 118 ml RECTAL ONCE Qty: 133 0RF No Action albuterol sulfate [Ventolin HFA] 90 mcg/actuation HFA aerosol inhaler 1 inh inhalation Q4H PRN (Reason: shortness of breath or wheezing) Qty: 25.5 0RF amlodipine 10 mg tablet 10 mg PO DAILY Qty: 90 2RF ezetimibe [Zetia] 10 mg tablet 10 mg PO DAILY Qty: 90 3RF cholecalciferol (vitamin D3) 50 mcg (2,000 unit) capsule 4,000 unit PO DAILY fluticasone propionate [Flonase Allergy Relief] 50 mcg/actuation spray,suspension See Rx Instructions .ROUTE .COMPLEX Qty: 48 0RF Rx Instructions: [place] 1 spray bt intranasal route everyday in each nostril ; losartan-hydrochlorothiazide 100-25 mg tablet See Rx Instructions .ROUTE .COMPLEX Qty: 90 3RF Dose Instruction: TAKE 1 TABLET DAILY Rx Instructions: TAKE 1 TABLET DAILY nebivolol [Bystolic] 10 mg tablet 10 mg PO DAILY Qty: 90 3RF nebivolol [Bystolic] 5 mg tablet 5 mg PO DAILY Qty: 90 3RF Follow-up/Referrals: Johan Molina MD [Primary Care Provider] - Time of Disposition: 08:56
[2025-03-15 08:15] VITALS: BP 150/71; PULSE 80; RESP 18; TEMP 36.8; O2SAT 99
== END 2025-03-15 09:00 | disposition home or self-care (01) ==
PROVIDERS: Emergency Provider Nurse Practitioner Family; PCP Emergency Medicine
DX: K59.00 Constipation, unspecified (principal); I10 Essential (primary) hypertension; E78.5 Hyperlipidemia, unspecified; E55.9 Vitamin D deficiency, unspecified
CPT/HCPCS: 74018; 99213; G0463

== ENCOUNTER 2025-09-10 13:51 | Outpatient (CLI) | payer OTHER, SELFPAY ==
--- NOTE | ~2025-09-10 | MM_ITS ---
EXAMINATION: MM screening johan BI w too HISTORY: Screening TECHNIQUE: Craniocaudal and mediolateral oblique 3-D tomosynthesis images were obtained and synthetic 2-D images were generated. CAD analysis was submitted and interpreted. COMPARISON: Comparison to multiple prior studies sequentially, with oldest reviewed study dated 05/14/2020. BREAST PARENCHYMAL COMPOSITION: Not dense: There are scattered areas of fibroglandular density. FINDINGS: There is no evidence of suspicious mass, calcification, or architectural distortion to suggest malignancy in either breast. There has been no suspicious interval change. IMPRESSION: 1. No mammographic evidence of malignancy. 2. Recommend routine screening mammography in one year. BI-RADS Category 1: Negative Reviewed, dictated and finalized at location B. UTER TRAINING SPECIALIST
--- OUTSIDE RECORDS SUMMARY | 2025-09-10 14:57 | XMS_ITS | Clinical Summary ---
Author Organization [facility] Address [address] [place] [address] Care Team Providers Care Science Faculty Member Name Role Phone Unavailable Primary Care Provider [...] Vaccines (1 of 2) 2012 COVID-19 Vaccine (2024-2 6 season) 2025 Influenza Adult (#1) 2025 RSV Immunization or 60+ Years (1 - 1-dose 75+ series) 2037 Hepatitis A Vaccines Aged Out No long er eligible based on patient's age to complete this topic Meningococcal B Vaccine Aged Out No l onger eligible based on patient's age to complete this topic Meningococcal Vaccine Aged Out No cierra jose eligible based on patient's age to complete this topic RSV Immunizations Under 20 Months Aged Out No longer eligible based on patient's age to complete this topic
--- OUTSIDE RECORDS SUMMARY | 2025-09-10 14:57 | XMS_ITS | Clinical Summary ---
Author Organization [facility] Moe Delo Address [address] [place] [address] Care Team Providers Care Pig Machine Operator Name Role Phone Unavailable Primary Care Provider Unavailabl e Source Comments [facility],non-owned Affiliates and Associated Physician Practices is amultiple site organization consisting of ambulatory clinics and hospital sitesin [place], [place], [place]. This disclosure is being madepursuant to the Care Everywhere program and may not contain all information available regarding this patient. Last updated 18.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 Gender Identity Not on file Sexual Orientation Not on file Last Filed Vital Signs Vital Sign Reading Time Taken Comments Blood Pressure 158/100 12/23/2018 11:05 AM ASSOCIATE PROFESSOR OF ECONOMICS Pulse 70 12/23/2018 10:48 AM ASSOCIATE PROFESSOR OF ECONOMICS Temperature 37.2 C (98.9 F) 12/23/2018 10:48 AM ASSOCIATE PROFESSOR OF ECONOMICS Respiratory Rate 16 12/23/2018 10:48 AM ASSOCIATE PROFESSOR OF ECONOMICS Oxygen Saturation 98% 12/23/2018 10:48 AM ASSOCIATE PROFESSOR OF ECONOMICS Inhaled Oxygen Concentration - - Weight 61.2 kg (135 lb) 12/23/2018 10:48 AM ASSOCIATE PROFESSOR OF ECONOMICS Height 160 cm (5' 3) 12/23/2018 10:48 AM ASSOCIATE PROFESSOR OF ECONOMICS Body Mass Index 23.91 12/23/2018 10:48 AM ASSOCIATE PROFESSOR OF ECONOMICS Plan of Treatment Health Maintenance Due Date [...] 2012 ZOSTER VACCINE (1 of 2) 2012 DEPRESSION SCREENING 10/30/2024 COVID-19 VACCINE (1 - 2023-2 5 season) 2025 INFLUENZA VACCINE (#1) 2025 Respiratory Syncytial Virus (RSV) Vaccine Pt: [...] patient's age to complete this topic Insurance [facility]
== END 2025-09-10 13:52 | disposition home or self-care (01) ==
LOC: ANHFOHIMG 13:53
PROVIDERS: PCP Emergency Medicine; Visit Provider Emergency Medicine
DX: Z12.31 Encounter for screening mammogram for malignant neoplasm of breast (principal)
CPT/HCPCS: 77063; 77067